=== PATIENT | male | born 1975 | race American Indian/Alaskan Native ===

== ENCOUNTER 2025-05-24 21:55 | Emergency (ER) | payer MEDICAID, SELFPAY ==
[2025-05-24 22:02] VITALS: BMI 25.7
[2025-05-24 22:06] VITALS: BP 136/87; PULSE 101; RESP 18; TEMP 36.8; O2SAT 97
--- NOTE | 2025-05-24 22:25 | PC.NURSE ---
Pt alert, awake, cooperative. No s/s of acute distress noted. Pt is out of bed to use restroom at this time.
[2025-05-24] MEDS: INSULIN HUM REGULAR 1 UNIT/0.01 ML (PER UNIT) 5 UNIT SC (22:33)
--- NOTE | 2025-05-24 22:36 | PD.EDMEDCL ---
ED Medical Clearance RME/HPI General Chief complaint: Medical Clearance Stated complaint: INTERMEDIATE CLEARANCE Time Seen by Provider: 05/24/25 22:31 Arrival date/time: 05/24/25 21:55 50-year-old male patient with significant history of diabetes mellitus, noncompliant with medications, was brought in by law enforcement for medical clearance due to elevated blood pressure. Patient is denying any chest pain, abdominal pain, vomiting, headache, or other complaints. No medication was taken prior to ER visit. Related Information Home Medications ?Medication ?Instructions ?Recorded ?Confirmed insulin detemir U-100 100 unit/mL 30 unit subcut QPM 08/29/17 08/29/17 subcutaneous solution insulin lispro 100 unit/mL 5 unit subcut ACHS 08/29/17 08/29/17 subcutaneous cartridge (Humalog U-100 Insulin) metformin 500 mg tablet,extended 500 mg PO QDAY 08/29/17 08/29/17 release 24 hr Previous Rx's ?Medication ?Instructions ?Recorded amoxicillin 500 mg-potassium 1 tab PO BID #20 tabs 08/29/17 clavulanate 125 mg tablet (Augmentin) tramadol 50 mg tablet 50 mg PO Q6H #20 tabs 08/29/17 doxycycline hyclate 100 mg capsule 100 mg PO BID #14 caps 07/11/23 diphenhydramine HCl 25 mg capsule 25 mg PO Q8H PRN allergic symptoms 09/18/23 (Benadryl) #30 caps ibuprofen 600 mg tablet 600 mg PO Q6H #30 tabs 09/18/23 metformin 500 mg tablet 500 mg PO BID #60 tabs 09/18/23 Allergies Allergy/AdvReac Type Severity Reaction Status Date / Time No Known Allergies Allergy Verified 05/24/25 22:01 Review of Systems Review of Systems Narrative Review of Systems: Review of system reviewed and within normal limits except mentioned in HPI ED Exam Narrative Physical exam: VITAL SIGNS: Reviewed. GENERAL APPEARANCE: Alert and interactive, follows commands, no acute distress, HEAD AND FACE: Non-traumatic. ENT: PERRL, pink conjunctivitis, eyelid no trauma, Mucous membrane moist. NECK: Supple, nontender, no nuchal rigidity. CHEST: No tenderness, no crepitus, no paradoxical movement, no retractions. LUNGS: Clear, well ventilated, symmetric, no rales, no wheezing, no ronchi, no stridor, good breath sounds bilaterally. HEART: Regular rate, regular rhythm, no murmur, no gallops. ABDOMEN: Soft, positive bowel sounds, nondistended, no guarding, nontender, no rebound, no masses, RECTAL: Deferred. GENITAL: Deferred. NEUROLOGICAL: Gross motor function intact sensory function intact, Appropriate for age. MUSCULOSKELETAL: low back nontender, full range of motion. EXTREMITIES: Nontender, full range of motion. SKIN: Color pink, dry, no rash, no lacerations, no abrasions, no contusions. LYMPHATICS: Deferred. Course Quality Measures none Orders Category Date Time Status Insulin Regular Med 05/24/25 22:24 Discontinued 5 unit SC X1 ONE Vital Signs Vital signs: Vital Signs Temperature 98.2 F 05/24/25 22:06 Pulse Rate 101 H 05/24/25 22:06 Respiratory Rate 18 05/24/25 22:06 Blood Pressure 136/87 H 05/24/25 22:06 Pulse Oximetry (%) 97 05/24/25 22:06 Oxygen Delivery Method Room Air 05/24/25 22:06 Medical Clearance MDM Narrative MDM Narrative:: 50-year-old male patient with significant history of diabetes mellitus, noncompliant with medications, was brought in by law enforcement for medical clearance due to elevated blood pressure. Patient is denying any chest pain, abdominal pain, vomiting, headache, or other complaints. No medication was taken prior to ER visit. patient refused lab draw, refused IV fluids. Patient received regular insulin 5 units subcu, and was given a lot of fluids to drink. I do not suspect any diabetic ketoacidosis, clinically patient is nontachycardic, respiratory rate of 18, afebrile, and denies complaints. However I cannot really gauge because the patient refused lab draw. patient is medically cleared for incarceration. Patient data External records reviewed:: None Clinical information provided by:: patient Social determinants that could affect healthcare access:: none Patient has the following chronic illnesses:: Diabetes mellitus How is presenting disease/condition affected by chronic disease/condition?: exacerbated by Evaluation data The following diagnostics were reviewed and interpreted by me:: other (specify) (None) Lab and/or radiology exams considered but not ordered:: None Interpretation Summary: None Medications / Prescriptions Medications or Prescriptions considered but not ordered:: None Medication administrations:: Medication Administration History Discontinued Medications Insulin Human Regular (Insulin Hum Regular 1 Unit/0.01 Ml (Per Unit)) 5 unit SC X1 ONE Stop: 05/24/25 22:25 Last Admin: 05/24/25 22:33 Dose: 5 unit Documented By: CCT Co-signed By: EVANGELINA Regular insulin subcu Consultations Consultation(s) initiated? (list below): No Diagnosis Medical Clearance Differential Diagnosis: other (Medical clearance for incarceration hyperglycemia,) Most likely diagnosis given after review of the tests above:: Hyperglycemia medical clearance Admission Indicated Admission indicated?: not indicated Admission Request Was there a request for admission?: No Disposition Plan Disposition Plan: Discharge Discharge Attestation Discharge Attestation: Medically cleared for incarceration. Patient condition: Stable Discharge Plan Plan Patient Disposition: [facility]/Court/Law Prescriptions/Referrals Prescriptions/Med Rec: No Action metformin 500 mg Tablet Extended Release 24 Hr 500 mg PO QDAY insulin lispro [Humalog U-100 Insulin] 100 unit/mL Cartridge 5 unit SUB-Q ACHS insulin detemir U-100 100 unit/mL Solution 30 unit SUB-Q QPM amoxicillin-pot clavulanate [Augmentin] 500-125 mg tablet 1 tab PO BID Qty: 20 0RF tramadol 50 mg tablet 50 mg PO Q6H Qty: 20 0RF doxycycline hyclate 100 mg capsule 100 mg PO BID Qty: 14 0RF metformin 500 mg tablet 500 mg PO BID Qty: 60 0RF diphenhydramine HCl [Benadryl] 25 mg capsule 25 mg PO Q8H PRN (Reason: allergic symptoms) Qty: 30 0RF ibuprofen 600 mg tablet 600 mg PO Q6H Qty: 30 0RF Problem List Clinical Impression: Medical clearance for incarceration, Hyperglycemia due to type 2 diabetes mellitus Patient/Caregiver Discharge Instructions Discharge Activity: activity as tolerated Education Materials: ED Diabetes- Overview Additional Instructions: Thank you for the opportunity for serving you today. You are stable for discharged . You are advised to: Follow-up with your PCP in 1 to 2 days once you discharge from the intermediate Return to ED for worsening of symptoms Increase oral fluids Please take your diabetic medication Print Language: Upper Sorbian Stand Alone Forms: Lena Award Info., Patient Portal Info Letter
[2025-05-25 00:17] VITALS: BP 148/98; PULSE 94; RESP 18; TEMP 36.4; O2SAT 98
== END 2025-05-25 00:17 ==
LOC: SERX 23:29
PROVIDERS: Emergency Provider Nurse Practitioner Family; PCP Physician Assistant
DX: E11.65 Type 2 diabetes mellitus with hyperglycemia (principal); Z02.89 Encounter for other administrative examinations; Z79.84 Long term (current) use of oral hypoglycemic drugs
CPT/HCPCS: 99282; J1815